=== PATIENT | male | born 1960 | race Caucasian/White ===

== ENCOUNTER 2020-12-03 14:43 | Inpatient (IN) | payer BC ==
[~2020-12-03] VITALS: Ht 175.3 cm; Wt 89.4 kg
[2020-12-03 16:14] LABS: BILIRUBIN,URINE NEGATIVE (NEG); CLARITY,URINE CLEAR; COLOR,URINE YELLOW; NITRITE,URINE NEGATIVE (NEG); PROTEIN,URINE 30 mg/dL (NEG-TRACE)
[2020-12-03] MEDS: IV NORMAL SALINE 1000ML BAG 1,000 ML IV SCH ×3 (16:19→17:13)
[2020-12-03 16:20] LABS: BASO # 0.1 x10^3/uL (0.0-0.2); BASO % 1 % (0-3); EOS % 0 % (0-3); HEMATOCRIT 46.9 % (39.0-53.0); HEMOGLOBIN 16.2 g/dL (13.0-17.5); LYMPH # 1.4 x10^3/uL (1.0-4.8); LYMPH % 7 % (24-48); MEAN CORPUSCULAR HEMOGLOBIN 30 pg (25-35); MEAN CORPUSCULAR HGB CONC 34 g/dL (31-37); MEAN CORPUSCULAR VOLUME 88 fL (79-100); MONO # 1.8 x10^3/uL (0.0-1.1); MONO % 9 % (0-9); NEUT # 16.1 x10^3/uL (1.8-7.7); NEUT % 83 % (31-73); PLATELET COUNT 216 x10^3/uL (140-400); RED BLOOD COUNT 5.34 x10^6/uL (4.30-5.70); RED CELL DISTRIBUTION WIDTH 12.8 % (11.5-14.5); WHITE BLOOD COUNT 19.4 x10^3/uL (4.0-11.0)
[2020-12-03 16:25] LABS: BACTERIA,URINE MANY /HPF (0-FEW)
[2020-12-03 16:26] LABS: RBC,URINE OCC /HPF (0-2)
[2020-12-03] MEDS ORDERED: ACETAMINOPHEN 500 MG TABLET PO ONE (16:30)
[2020-12-03 16:36] LABS: CALCIUM 8.6 mg/dL (8.5-10.1); CREATININE 1.1 mg/dL (0.7-1.3); GFR 68.5; POTASSIUM 3.7 mmol/L (3.5-5.1)
[2020-12-03 16:42] LABS: ALBUMIN 3.2 g/dL (3.4-5.0); ALBUMIN/GLOBULIN RATIO 0.8 (1.0-1.7); TOTAL BILIRUBIN 0.8 mg/dL (0.2-1.0); TOTAL PROTEIN 7.4 g/dL (6.4-8.2)
[2020-12-03 16:43] LABS: INFLUENZA A PATIENT NEGATIVE (NEGATIVE); INFLUENZA B PATIENT NEGATIVE (NEGATIVE)
--- NOTE | 2020-12-03 16:50 | RAD ---
EXAM: CHEST 1 VIEW History: Fever COMPARISON: None available. TECHNIQUE: Single portable radiograph of the chest FINDINGS: The cardiac silhouette is unremarkable. Mild patchy airspace opacities bibasilar lungs lik ruth atelectasis or infiltrates. The costophrenic sulci are clear and well demarcated. IMPRESSION: Mild patchy airspace opacities bibasilar lungs likely infiltrates. Follow-up to [facility] on. Electronically signed by: Miguel Gutierrez MD (12/03/2020 4:48 PM) [id number]
[2020-12-03 16:59] LABS: % BANDS 12 % (0-9); % BASOS 1 % (0-3); % LYMPHS 7 % (24-48); % MONOS 7 % (0-10); % SEGS 73 % (35-66); PLT ESTIMATE ADEQUATE (ADEQUATE)
[2020-12-03 17:00] LABS: POLYCHROMASIA SLIGHT
[2020-12-03 17:03] LABS: TOXIC GRANULATION SLIGHT
[2020-12-03] MEDS ORDERED: cefTRIAXone IV Push 1 GM VIAL. IVP ONE (17:15)
--- NOTE | 2020-12-03 18:08 | RAD ---
PQRS Compliance Statement: One or more of the following individualized dose reduction techniques were utilized for this examinat ion: 1. Automated exposure control 2. Adjustment of the mA and/or kV according to patient size 3. Use of iterative reconstruction technique CT ABDOMEN+PELVIS WO Clinical Indication: Reason: Bilateral flank pain. H/o kidney stones / Comparison: None. Technique: Helical CT imaging of the abdomen and pelvis is performed without IV or oral contrast. Findings: Evaluation of solid organs and bowel is limited without oral and IV contrast, decreasing sensitivity for detection of pathology. Minimal atelectasis or scarring in the posterior lower lobes. Cardiac size normal. The liver, gallbladder, spleen, pancreas, adrenal glands, and abdominal aorta are normal. There is no renal, ureteral, or bladder calculus. There is no hydronephrosis. The stomach is mostly decompressed. There is no dilated small bowel. There is no colon wall thickenin g. The appendix is normal. There is haziness of the central mesentery, nonspecific. There is no abdom inal adenopathy. There are subcentimeter iliac chain lymph nodes. Urinary bladder is normal. Prostate size upper limit s of normal. No pelvic free fluid. Small sclerotic focus of the intertrochanteric left femur is probably incidental and may be a bone is land. IMPRESSION: No acute abdominal or pelvic abnormality. No obstructive uropathy. Electronically signed by: Gatito Perry MD (12/03/2020 6:05 PM) [facility]
--- NOTE | 2020-12-03 21:06 | PHYS DOC ---
Past Medical History Past Medical History: UTI Past Surgical History: Other Additional Past Surgical Histo: URETEHERAL STRICTURE Smoking Status: Former Smoker Alcohol Use: Rarely General Adult EDM: Chief Complaint: BACK PAIN OR INJURY HPI: HPI: Patient is a 60 year old male with history of UTIs who presents to the ED today complaining of 7 out of 10 bilateral mid back pain, headache, chills, symptoms began 3 days ago. Patient describes the pain as throbbing and intermittent. Denies anything exacerbating or relieving the pain. Denies any cough, congestion, chest pain or shortness of breath. He states he got [employer] Covid vaccine. He states the last time he had similar symptoms he had infection in his urine. He states he is from [facility] and is here working for [employer] Review of Systems: Review of Systems: Constitutional: Reports chills HENT: Denies nasal congestion or sore throat. [] Respiratory: Denies cough or shortness of breath. [] Cardiovascular: Denies chest pain or edema. [] GI: Denies abdominal pain, nausea, vomiting, bloody stools or diarrhea. [] : Denies dysuria. [] Musculoskeletal: Reports bilateral mid back pain Integument: Denies rash. [] Neurologic: Reports headache, denies focal weakness or sensory changes. [] Endocrine: Denies polyuria or polydipsia. [] Lymphatic: Denies swollen glands. [] Psychiatric: Denies depression or anxiety. [] Heart Score: C/O Chest Pain: N/A Risk Factors: Risk Factors: DM, Current or recent (<one month) smoker, HTN, HLP, family history of CAD, obesity. Risk Scores: Score 0 - 3: 2.5% MACE over next 6 weeks - Discharge Home Score 4 - 6: 20.3% MACE over next 6 weeks - Admit for Clinical Observation Score 7 - 10: 72.7% MACE over next 6 weeks - Early Invasive Strategies Current Medications: Current Medications Medications (Trade) Dose Ordered Sig/Augustin Start Time Stop Time Status Last Admin Dose Admin Acetaminophen (Tylenol) 1,000 mg 1X ONCE 12/03/20 16:30 12/03/20 16:31 DC 12/03/20 16:19 1,000 MG Ceftriaxone Sodium (Rocephin) 1 gm 1X ONCE 12/03/20 17:15 12/03/20 17:16 DC 12/03/20 17:15 1 GM Sodium Chloride 1,000 ml @ 2,130 mls/hr Q29M 12/03/20 16:15 12/03/20 17:15 DC 12/03/20 16:19 2,130 MLS/HR Allergies: Allergies: Allergies Coded Allergies Type Severity Reaction Last Updated Verified No Known Drug Allergies 12/03/20 No Physical Exam: PE: Constitutional: Well developed, well nourished, no acute distress, non-toxic appearance. [] HENT: Normocephalic, atraumatic, bilateral external ears normal, oropharynx moist, no oral exudates, nose normal. [] Eyes: PERRLA, EOMI, conjunctiva normal, no discharge. [] Neck: Normal range of motion, no tenderness, supple, no stridor. [] Cardiovascular:Heart rate regular rhythm, no murmur [] Lungs & Thorax: Bilateral breath sounds clear to auscultation [] Abdomen: Bowel sounds normal, soft, no tenderness, no masses, no pulsatile ma sses. [] Skin: Warm, dry, no erythema, no rash. [] Back: No tenderness, no CVA tenderness. [] Extremities: No tenderness, no cyanosis, no clubbing, ROM intact, no edema. [] Neurologic: Alert and oriented X 3, normal motor function, normal sensory function, no focal deficits noted. [] Psychologic: Affect normal, judgement normal, mood normal. [] Current Patient Data: Labs: Laboratory Tests Test 12/03/20 15:54 12/03/20 16:05 12/03/20 16:11 Urine Collection Type Unknown Urine Color Yellow Urine Clarity Clear Urine pH 6.0 (<5.0-8.0) Urine Specific [place] >=1.030 (1.000-1.030) Urine Protein 30 mg/dL (NEG-TRACE) Urine Glucose (UA) >=1000 mg/dL (NEG) Urine Ketones (Stick) >=80 mg/dL (NEG) Urine Blood Negative (NEG) Urine Nitrite Negative (NEG) Urine Bilirubin Negative (NEG) Urine Urobilinogen Dipstick 1.0 mg/dL (0.2 mg/dL) Urine Leukocyte Esterase Small (NEG) Urine RBC Occ /HPF (0-2) Urine WBC 11-20 /HPF (0-4) Urine Squamous Epithelial Cells Few /LPF Urine Bacteria Many /HPF (0-FEW) Urine Mucus Marked /LPF White Blood Count 19.4 x10^3/uL (4.0-11.0) H Red Blood Count 5.34 x10^6/uL (4.30-5.70) Hemoglobin 16.2 g/dL (13.0-17.5) Hematocrit 46.9 % (39.0-53.0) Mean Corpuscular Volume 88 fL (79-100) Mean Corpuscular Hemoglobin 30 pg (25-35) Mean Corpuscular Hemoglobin Concent 34 g/dL (31-37) Red Cell Distribution Width 12.8 % (11.5-14.5) Platelet Count 216 x10^3/uL (140-400) Neutrophils (%) (Auto) 83 % (31-73) H Lymphocytes (%) (Auto) 7 % (24-48) L Monocytes (%) (Auto) 9 % (0-9) Eosinophils (%) (Auto) 0 % (0-3) Basophils (%) (Auto) 1 % (0-3) Neutrophils # (Auto) 16.1 x10^3/uL (1.8-7.7) H Lymphocytes # (Auto) 1.4 x10^3/uL (1.0-4.8) Monocytes # (Auto) 1.8 x10^3/uL (0.0-1.1) H Eosinophils # (Auto) 0.0 x10^3/uL (0.0-0.7) Basophils # (Auto) 0.1 x10^3/uL (0.0-0.2) Segmented Neutrophils % 73 % (35-66) H Band Neutrophils % 12 % (0-9) H Lymphocytes % 7 % (24-48) L Monocytes % 7 % (0-10) Basophils % 1 % (0-3) Toxic Granulation Slight Platelet Estimate Adequate (ADEQUATE) Polychromasia Slight Sodium Level 133 mmol/L (136-145) L Potassium Level 3.7 mmol/L (3.5-5.1) Chloride Level 98 mmol/L (98-107) Carbon Dioxide Level 25 mmol/L (21-32) Anion Gap 10 (6-14) Blood Urea Nitrogen 16 mg/dL (8-26) Creatinine 1.1 mg/dL (0.7-1.3) Estimated GFR (Cockcroft-Gault) 68.5 BUN/Creatinine Ratio 15 (6-20) Glucose Level 270 mg/dL (70-99) H Lactic Acid Level 1.1 mmol/L (0.4-2.0) Calcium Level 8.6 mg/dL (8.5-10.1) Total Bilirubin 0.8 mg/dL (0.2-1.0) Aspartate Amino Transferase (AST) 5 U/L (15-37) L Alanine Aminotransferase (ALT) 23 U/L (16-63) Alkaline Phosphatase 122 U/L (46-116) H Total Protein 7.4 g/dL (6.4-8.2) Albumin 3.2 g/dL (3.4-5.0) L Albumin/Globulin Ratio 0.8 (1.0-1.7) L Procalcitonin 0.37 ng/mL (0.00-0.10) H Influenza Type A Antigen Negative (NEGATIVE) Influenza Type B Antigen Negative (NEGATIVE) SARS-CoV-2 Antigen (Rapid) Negative (NEGATIVE) Laboratory Tests 12/03/20 16:05 Laboratory Tests 12/03/20 16:05 Vital Signs: Vital Signs Date Time Temp Pulse Resp B/P (MAP) Pulse Ox O2 Delivery O2 Flow Rate FiO2 12/03/20 19:26 88 23 114/65 (81) 96 Room Air 12/03/20 15:57 101.8 101.8 EKG: EKG: [] Radiology/Procedures: Radiology/Procedures: []PROCEDURE: CT ABDOMEN PELVIS WO CONTRAST PQRS Compliance Statement: One or more of the following individualized dose reduction techniques were utilized for this examination: 1. Automated exposure control 2. Adjustment of the mA and/or kV according to patient size 3. Use of iterative reconstruction technique CT ABDOMEN+PELVIS WO Clinical Indication: Reason: Bilateral flank pain. H/o kidney stones / Comparison: None. Technique: Helical CT imaging of the abdomen and pelvis is performed without IV or oral contrast. Findings: Evaluation of solid organs and bowel is limited without oral and IV contrast, decreasing sensitivity for detection of pathology. Minimal atelectasis or scarring in the posterior lower lobes. Cardiac size normal. The liver, gallbladder, spleen, pancreas, adrenal glands, and abdominal aorta are normal. There is no renal, ureteral, or bladder calculus. There is no hydronephrosis. The stomach is mostly decompressed. There is no dilated small bowel. There is no colon wall thickening. The appendix is normal. There is haziness of the central mesentery, nonspecific. There is no abdominal adenopathy. There are subcentimeter iliac chain lymph nodes. Urinary bladder is normal. Prostate size upper limits of normal. No pelvic free fluid. Small sclerotic focus of the intertrochanteric left femur is probably incidental and may be a bone island. IMPRESSION: No acute abdominal or pelvic abnormality. No obstructive uropathy. Electronically signed by: Gatito Perry MD (12/03/2020 6:05 PM) [facility] DICTATED and SIGNED BY: GATITO PERRY MD DATE: 12/03/[id number] 0 PROCEDURE: PORTABLE CHEST 1V EXAM: CHEST 1 VIEW History: Fever COMPARISON: None available. TECHNIQUE: Single portable radiograph of the chest FINDINGS: The cardiac silhouette is unremarkable. Mild patchy airspace opacities bibasilar lungs likely atelectasis or infiltrates. The costophrenic sulci are clear and well demarcated. IMPRESSION: Mild patchy airspace opacities bibasilar lungs likely infiltrates. Follow-up to resolution. Electronically signed by: Miguel Gutierrez MD (12/03/2020 4:48 PM) [id number] DICTATED and SIGNED BY: MIGUEL GUTIERREZ MD DATE: 12/03/20 [id number] Course & Med Decision Making: Course & Med Decision Making Pertinent Labs and Imaging studies reviewed. (See chart for details) This is a 60-year-old male patient presented to the ED today with headache chills and mid back pain, symptoms began 3 days ago. Vitals on arrival to the ED temperature one 1.8, heart rate 119, respiration 18 on room air, blood pressure 157/80, O2 sats 98%. CBC with a WBC of 19.4, left shift with bandemia. CMP with glucose of 270, lactic 1.1, procalcitonin 0.37. UA positive for UTI. Negative rapid influenza A and B, negative rapid Covid test. Patient was given Tylenol on arrival to the ED and started on IV fluids per sepsis protocol. He was also given Rocephin IV. Spoke to Dr. Hitchcock who accepted patient for admission Dragon Disclaimer: Keri Disclaimer: This electronic medical record was generated, in whole or in part, using a voice recognition dictation system. Date and Time of Reassessment Date: Dec 03, 2020 Time: 15:45 Fluid Challenge Is the fluid challenge complet: No IBW Target Volume Used: No BMI > 30: No Vital Signs Vital Signs: Vital Signs Date Time Temp Pulse Resp B/P (MAP) Pulse Ox O2 Delivery O2 Flow Rate FiO2 12/03/20 19:26 88 23 114/65 (81) 96 Room Air 12/03/20 15:57 101.8 101.8 Temperature Source: Oral Respirations Respiratory Effort: Normal Respiratory Pattern: Normal Cardiovascular Pulse Rhythm: Regular Heart: Nml rate, reg. rhythm Lung Sounds Breath Sounds: Clear Capillary Refil Capillary Refill: Rt Hand > 3 seconds Peripheral Pulse Pulse Location: Monitor Pulse Strength: Normal (2+) Pulse Assessment Method: Monitor Integumentary Skin: Warm Skin Moisture: Moist Skin Turgor: Normal Skin Color: warm Fingernail Color: WNL Departure Departure Impression: Primary Impression: Fever Qualified Codes: R50.9 - Fever, unspecified Additional Impressions: Urinary tract infection Qualified Codes: N39.0 - Urinary tract infection, site not specified Sepsis Qualified Codes: A41.9 - Sepsis, unspecified organism Headache Qualified Codes: R51.9 - Headache, unspecified Person under investigation for COVID-19 Disposition: 09 ADMITTED INPATIENT Condition: STABLE Referrals: NO PCP (PCP) MICHAEL SAEED APRN Dec 03, 2020 21:06
[2020-12-03] MEDS ORDERED: MORPHINE SULFATE 2 MG/ML INJ. IVP PRN (21:15)
[2020-12-03] MEDS ORDERED: ONDANSETRON PF 4 MG/2 ML VIAL. IVP PRN (21:15)
[2020-12-03] MEDS ORDERED: IV NORMAL SALINE 1000ML BAG 1,000 ML IV ONE (21:15)
[2020-12-03] MEDS ORDERED: ACETAMINOPHEN 325 MG TABLET. PO PRN (21:15)
[2020-12-04 05:32] LABS: ALBUMIN 2.5 g/dL (3.4-5.0); ALBUMIN/GLOBULIN RATIO 0.7 (1.0-1.7); CALCIUM 7.6 mg/dL (8.5-10.1); CREATININE 0.9 mg/dL (0.7-1.3); GFR 86.4; POTASSIUM 3.6 mmol/L (3.5-5.1); TOTAL BILIRUBIN 0.7 mg/dL (0.2-1.0)
[2020-12-04 05:37] LABS: BASO # 0.1 x10^3/uL (0.0-0.2); BASO % 0 % (0-3); EOS # 0.1 x10^3/uL (0.0-0.7); EOS % 1 % (0-3); HEMATOCRIT 41.1 % (39.0-53.0); HEMOGLOBIN 14.1 g/dL (13.0-17.5); LYMPH # 2.1 x10^3/uL (1.0-4.8); LYMPH % 15 % (24-48); MEAN CORPUSCULAR HEMOGLOBIN 31 pg (25-35); MEAN CORPUSCULAR HGB CONC 34 g/dL (31-37); MEAN CORPUSCULAR VOLUME 89 fL (79-100); MONO # 1.4 x10^3/uL (0.0-1.1); MONO % 10 % (0-9); NEUT # 10.5 x10^3/uL (1.8-7.7); NEUT % 74 % (31-73); PLATELET COUNT 201 x10^3/uL (140-400); RED BLOOD COUNT 4.63 x10^6/uL (4.30-5.70); RED CELL DISTRIBUTION WIDTH 12.8 % (11.5-14.5); WHITE BLOOD COUNT 14.2 x10^3/uL (4.0-11.0)
[2020-12-04] MEDS ORDERED: DEXTROSE 50% 25 GM / 50ML DISP.SYRIN. IV PRN (07:00)
--- NOTE | 2020-12-04 07:04 | PDOC1 ---
History and Physical Date of Admission Date of Admission DATE: 12/04/20 TIME: 07:04 Identification/Chief Complaint Chief Complaint Back pain, fever Current Problem List Problem List Problems Medical Problems: (1) Fever Status: Acute (2) Headache Status: Acute (3) Person under investigation for COVID-19 Status: Acute (4) Sepsis Status: Acute (5) Urinary tract infection Status: Acute Current Medications Current Medications Current Medications Acetaminophen (Tylenol) 1,000 mg 1X ONCE PO Last administered on 12/03/20at 16:19; Start 12/03/20 at 16:30; Stop 12/03/20 at 16:31; Status DC Sodium Chloride 1,000 ml @ 2,130 mls/hr Q29M IV Last administered on 12/03/20at 16:19; Start 12/03/20 at 16:15; Stop 12/03/20 at 17:15; Status DC Ceftriaxone Sodium (Rocephin) 1 gm 1X ONCE IVP Last administered on 12/03/20at 17:15; Start 12/03/20 at 17:15; Stop 12/03/20 at 17:16; Status DC Ondansetron HCl (Zofran) 4 mg PRN Q8HRS PRN IVP NAUSEA/VOMITING 1ST CHOICE; Start 12/03/20 at 21:15; Stop 12/04/20 at 21:14 Morphine Sulfate (Morphine Sulfate) 2 mg PRN Q2HR PRN IVP SEVERE PAIN 7-10; Start 12/03/20 at 21:15; Stop 12/04/20 at 21:14 Acetaminophen (Tylenol) 650 mg PRN Q4HRS PRN PO FEVER > 100.3'F; Start 12/03/20 at 21:15; Stop 12/04/20 at 21:14 Sodium Chloride 1,000 ml @ 125 mls/hr 1X ONCE IV Last administered on 12/03/20at 23:32; Start 12/03/20 at 21:15; Stop 12/04/20 at 05:14; Status DC Allergies Allergies: Coded Allergies: No Known Drug Allergies (Unverified , 12/03/20) Vitals Vitals Vital Signs Date Time Temp Pulse Resp B/P (MAP) Pulse Ox O2 Delivery O2 Flow Rate FiO2 12/04/20 03:34 86 18 116/67 (83) 96 Room Air 12/03/20 15:57 101.8 101.8 Labs Labs Laboratory Tests Test 12/03/20 15:54 12/03/20 16:05 12/03/20 16:11 12/04/20 04:45 Urine Collection Type Unknown Urine Color Yellow Urine Clarity Clear Urine pH 6.0 (<5.0-8.0) Urine Specific [place] >=1.030 (1.000-1.030) Urine Protein 30 mg/dL (NEG-TRACE) Urine Glucose (UA) >=1000 mg/dL (NEG) Urine Ketones (Stick) >=80 mg/dL (NEG) Urine Blood Negative (NEG) Urine Nitrite Negative (NEG) Urine Bilirubin Negative (NEG) Urine Urobilinogen Dipstick 1.0 mg/dL (0.2 mg/dL) Urine Leukocyte Esterase Small (NEG) Urine RBC Occ /HPF (0-2) Urine WBC 11-20 /HPF (0-4) Urine Squamous Epithelial Cells Few /LPF Urine Bacteria Many /HPF (0-FEW) Urine Mucus Marked /LPF White Blood Count 19.4 x10^3/uL (4.0-11.0) 14.2 x10^3/uL (4.0-11.0) Red Blood Count 5.34 x10^6/uL (4.30-5.70) 4.63 x10^6/uL (4.30-5.70) Hemoglobin 16.2 g/dL (13.0-17.5) 14.1 g/dL (13.0-17.5) Hematocrit 46.9 % (39.0-53.0) 41.1 % (39.0-53.0) Mean Corpuscular Volume 88 fL (79-100) 89 fL (79-100) Mean Corpuscular Hemoglobin 30 pg (25-35) 31 pg (25-35) Mean Corpuscular Hemoglobin Concent 34 g/dL (31-37) 34 g/dL (31-37) Red Cell Distribution Width 12.8 % (11.5-14.5) 12.8 % (11.5-14.5) Platelet Count 216 x10^3/uL (140-400) 201 x10^3/uL (140-400) Neutrophils (%) (Auto) 83 % (31-73) 74 % (31-73) Lymphocytes (%) (Auto) 7 % (24-48) 15 % (24-48) Monocytes (%) (Auto) 9 % (0-9) 10 % (0-9) Eosinophils (%) (Auto) 0 % (0-3) 1 % (0-3) Basophils (%) (Auto) 1 % (0-3) 0 % (0-3) Neutrophils # (Auto) 16.1 x10^3/uL (1.8-7.7) 10.5 x10^3/uL (1.8-7.7) Lymphocytes # (Auto) 1.4 x10^3/uL (1.0-4.8) 2.1 x10^3/uL (1.0-4.8) Monocytes # (Auto) 1.8 x10^3/uL (0.0-1.1) 1.4 x10^3/uL (0.0-1.1) Eosinophils # (Auto) 0.0 x10^3/uL (0.0-0.7) 0.1 x10^3/uL (0.0-0.7) Basophils # (Auto) 0.1 x10^3/uL (0.0-0.2) 0.1 x10^3/uL (0.0-0.2) Segmented Neutrophils % 73 % (35-66) Band Neutrophils % 12 % (0-9) Lymphocytes % 7 % (24-48) Monocytes % 7 % (0-10) Basophils % 1 % (0-3) Toxic Granulation Slight Platelet Estimate Adequate (ADEQUATE) Polychromasia Slight Sodium Level 133 mmol/L (136-145) 137 mmol/L (136-145) Potassium Level 3.7 mmol/L (3.5-5.1) 3.6 mmol/L (3.5-5.1) Chloride Level 98 mmol/L (98-107) 103 mmol/L (98-107) Carbon Dioxide Level 25 mmol/L (21-32) 25 mmol/L (21-32) Anion Gap 10 (6-14) 9 (6-14) Blood Urea Nitrogen 16 mg/dL (8-26) 18 mg/dL (8-26) Creatinine 1.1 mg/dL (0.7-1.3) 0.9 mg/dL (0.7-1.3) Estimated GFR (Cockcroft-Gault) 68.5 86.4 BUN/Creatinine Ratio 15 (6-20) 20 (6-20) Glucose Level 270 mg/dL (70-99) 211 mg/dL (70-99) Lactic Acid Level 1.1 mmol/L (0.4-2.0) Calcium Level 8.6 mg/dL (8.5-10.1) 7.6 mg/dL (8.5-10.1) Total Bilirubin 0.8 mg/dL (0.2-1.0) 0.7 mg/dL (0.2-1.0) Aspartate Amino Transf (AST/SGOT) 5 U/L (15-37) 9 U/L (15-37) Alanine Aminotransferase (ALT/SGPT) 23 U/L (16-63) 18 U/L (16-63) Alkaline Phosphatase 122 U/L (46-116) 98 U/L (46-116) Total Protein 7.4 g/dL (6.4-8.2) 6.0 g/dL (6.4-8.2) Albumin 3.2 g/dL (3.4-5.0) 2.5 g/dL (3.4-5.0) Albumin/Globulin Ratio 0.8 (1.0-1.7) 0.7 (1.0-1.7) Procalcitonin 0.37 ng/mL (0.00-0.10) Influenza Type A Antigen Negative (NEGATIVE) Influenza Type B Antigen Negative (NEGATIVE) SARS-CoV-2 Antigen (Rapid) Negative (NEGATIVE) Laboratory Tests Test 12/03/20 15:54 12/03/20 16:05 12/03/20 16:11 12/04/20 04:45 Urine Collection Type Unknown Urine Color Yellow Urine Clarity Clear Urine pH 6.0 (<5.0-8.0) Urine Specific [place] >=1.030 (1.000-1.030) Urine Protein 30 mg/dL (NEG-TRACE) Urine Glucose (UA) >=1000 mg/dL (NEG) Urine Ketones (Stick) >=80 mg/dL (NEG) Urine Blood Negative (NEG) Urine Nitrite Negative (NEG) Urine Bilirubin Negative (NEG) Urine Urobilinogen Dipstick 1.0 mg/dL (0.2 mg/dL) Urine Leukocyte Esterase Small (NEG) Urine RBC Occ /HPF (0-2) Urine WBC 11-20 /HPF (0-4) Urine Squamous Epithelial Cells Few /LPF Urine Bacteria Many /HPF (0-FEW) Urine Mucus Marked /LPF White Blood Count 19.4 x10^3/uL (4.0-11.0) 14.2 x10^3/uL (4.0-11.0) Red Blood Count 5.34 x10^6/uL (4.30-5.70) 4.63 x10^6/uL (4.30-5.70) Hemoglobin 16.2 g/dL (13.0-17.5) 14.1 g/dL (13.0-17.5) Hematocrit 46.9 % (39.0-53.0) 41.1 % (39.0-53.0) Mean Corpuscular Volume 88 fL (79-100) 89 fL (79-100) Mean Corpuscular Hemoglobin 30 pg (25-35) 31 pg (25-35) Mean Corpuscular Hemoglobin Concent 34 g/dL (31-37) 34 g/dL (31-37) Red Cell Distribution Width 12.8 % (11.5-14.5) 12.8 % (11.5-14.5) Platelet Count 216 x10^3/uL (140-400) 201 x10^3/uL (140-400) Neutrophils (%) (Auto) 83 % (31-73) 74 % (31-73) Lymphocytes (%) (Auto) 7 % (24-48) 15 % (24-48) Monocytes (%) (Auto) 9 % (0-9) 10 % (0-9) Eosinophils (%) (Auto) 0 % (0-3) 1 % (0-3) Basophils (%) (Auto) 1 % (0-3) 0 % (0-3) Neutrophils # (Auto) 16.1 x10^3/uL (1.8-7.7) 10.5 x10^3/uL (1.8-7.7) Lymphocytes # (Auto) 1.4 x10^3/uL (1.0-4.8) 2.1 x10^3/uL (1.0-4.8) Monocytes # (Auto) 1.8 x10^3/uL (0.0-1.1) 1.4 x10^3/uL (0.0-1.1) Eosinophils # (Auto) 0.0 x10^3/uL (0.0-0.7) 0.1 x10^3/uL (0.0-0.7) Basophils # (Auto) 0.1 x10^3/uL (0.0-0.2) 0.1 x10^3/uL (0.0-0.2) Segmented Neutrophils % 73 % (35-66) Band Neutrophils % 12 % (0-9) Lymphocytes % 7 % (24-48) Monocytes % 7 % (0-10) Basophils % 1 % (0-3) Toxic Granulation Slight Platelet Estimate Adequate (ADEQUATE) Polychromasia Slight Sodium Level 133 mmol/L (136-145) 137 mmol/L (136-145) Potassium Level 3.7 mmol/L (3.5-5.1) 3.6 mmol/L (3.5-5.1) Chloride Level 98 mmol/L (98-107) 103 mmol/L (98-107) Carbon Dioxide Level 25 mmol/L (21-32) 25 mmol/L (21-32) Anion Gap 10 (6-14) 9 (6-14) Blood Urea Nitrogen 16 mg/dL (8-26) 18 mg/dL (8-26) Creatinine 1.1 mg/dL (0.7-1.3) 0.9 mg/dL (0.7-1.3) Estimated GFR (Cockcroft-Gault) 68.5 86.4 BUN/Creatinine Ratio 15 (6-20) 20 (6-20) Glucose Level 270 mg/dL (70-99) 211 mg/dL (70-99) Lactic Acid Level 1.1 mmol/L (0.4-2.0) Calcium Level 8.6 mg/dL (8.5-10.1) 7.6 mg/dL (8.5-10.1) Total Bilirubin 0.8 mg/dL (0.2-1.0) 0.7 mg/dL (0.2-1.0) Aspartate Amino Transf (AST/SGOT) 5 U/L (15-37) 9 U/L (15-37) Alanine Aminotransferase (ALT/SGPT) 23 U/L (16-63) 18 U/L (16-63) Alkaline Phosphatase 122 U/L (46-116) 98 U/L (46-116) Total Protein 7.4 g/dL (6.4-8.2) 6.0 g/dL (6.4-8.2) Albumin 3.2 g/dL (3.4-5.0) 2.5 g/dL (3.4-5.0) Albumin/Globulin Ratio 0.8 (1.0-1.7) 0.7 (1.0-1.7) Procalcitonin 0.37 ng/mL (0.00-0.10) Influenza Type A Antigen Negative (NEGATIVE) Influenza Type B Antigen Negative (NEGATIVE) SARS-CoV-2 Antigen (Rapid) Negative (NEGATIVE) Justifications for Admission Other Justification MOE MONTOYA MD Dec 04, 2020 07:04
[2020-12-04] MEDS ORDERED: ACETAMINOPHEN 325 MG TABLET. PO PRN (07:15)
[2020-12-04] MEDS ORDERED: ONDANSETRON PF 4 MG/2 ML VIAL. IVP PRN (07:15)
[2020-12-04] MEDS ORDERED: AZITHROMYCIN 250 MG TABLET. PO ONE (07:30)
--- NOTE | 2020-12-04 07:40 | PDOC1 ---
History and Physical Date of Admission Date of Admission DATE: 12/04/20 TIME: :21 Identification/Chief Complaint Chief Complaint Back pain Source Source: Patient History of Present Illness History of Present Illness Patient 60-year-old male with past medical history UTIs, kidney stones, presents to the ED with complaints of bilateral flank pain for the past 3 days. He reports associated urinary frequency, urgency, headache, and chills. Denies fever, dysuria, nausea, or vomiting. Labs on admission showed WBC 19.4, CBG 270. Urinalysis with small leukocyte esterase, urine nitrite negative, urine WBC 1120, with many urine bacteria. Chest x-ray showed mild patchy airspace opacities bibasilar lungs likely infiltrates. Follow-up to resolution CT abdomen/pelvis showed no renal, ureteral, or bladder calculus; here is no hydronephrosis. He has been vaccinated against COVID-19. Will admit patient for further medical management. Past Medical History Past Medical History UTIs, kidney stone Past Surgical History Past Surgical History Urethral stricture Family History Family History Reviewed with patient but denies significant family history Social History Smoke: Quit ALCOHOL: occassional Drugs: None Current Problem List Problem List Problems Medical Problems: (1) Fever Status: Acute (2) Headache Status: Acute (3) Person under investigation for COVID-19 Status: Acute (4) Sepsis Status: Acute (5) Urinary tract infection Status: Acute Current Medications Current Medications Current Medications Acetaminophen (Tylenol) 1,000 mg 1X ONCE PO Last administered on 12/03/20at 16:19; Start 12/03/20 at 16:30; Stop 12/03/20 at 16:31; Status DC Sodium Chloride 1,000 ml @ 2,130 mls/hr Q29M IV Last administered on 12/03/20at 16:19; Start 12/03/20 at 16:15; Stop 12/03/20 at 17:15; Status DC Ceftriaxone Sodium (Rocephin) 1 gm 1X ONCE IVP Last administered on 12/03/20at 17:15; Start 12/03/20 at 17:15; Stop 12/03/20 at 17:16; Status DC Ondansetron HCl (Zofran) 4 mg PRN Q8HRS PRN IVP NAUSEA/VOMITING 1ST CHOICE; Start 12/03/20 at 21:15; Stop 12/04/20 at 07:03; Status DC Morphine Sulfate (Morphine Sulfate) 2 mg PRN Q2HR PRN IVP SEVERE PAIN 7-10; Start 12/03/20 at 21:15; Stop 12/04/20 at 21:14 Acetaminophen (Tylenol) 650 mg PRN Q4HRS PRN PO FEVER > 100.3'F; Start 12/03/20 at 21:15; Stop 12/04/20 at 07:03; Status DC Sodium Chloride 1,000 ml @ 125 mls/hr 1X ONCE IV Last administered on 12/03/20at 23:32; Start 12/03/20 at 21:15; Stop 12/04/20 at 05:14; Status DC Insulin Glargine (Lantus Syringe) 8 unit QHS SQ ; Start 12/04/20 at 21:00 Insulin Human Lispro (HumaLOG) 0-9 UNITS TIDWMEALS SQ ; Start 12/04/20 at 08:00 Dextrose (Dextrose 50%-Water Syringe) 12.5 gm PRN Q15MIN PRN IV SEE COMMENTS; Start 12/04/20 at 07:00 Ondansetron HCl (Zofran) 4 mg PRN Q4HRS PRN IVP NAUSEA/VOMITING 1ST CHOICE; Start 12/04/20 at 07:15 Acetaminophen (Tylenol) 650 mg PRN Q6HRS PRN PO FEVER > 100.3'F; Start 12/04/20 at 07:15 Allergies Allergies: Coded Allergies: No Known Drug Allergies (Unverified , 12/03/20) ROS Review of System GENERAL: Headache, chills. No history of weight change, weakness or fevers. SKIN: No bruising, hair changes or rashes. EYES: No blurred, double or loss of vision. NOSE AND THROAT: No history of nosebleeds, hoarseness or sore throat. HEART: Denies chest pain, denies palpitations. LUNGS: Denies cough, hemoptysis, wheezing or shortness of breath. GASTROINTESTINAL: Denies nausea, vomiting, abdominal pain. GENITOURINARY: Bilateral flank pain. Urinary urgency, frequency. Denies dysuria, hematuria. NEUROLOGIC: Denies history of numbness, tingling, tremor or weakness. PSYCHIATRIC: Denies anxiety, denies depression. ENDOCRINE: No history of heat or cold intolerance, polyuria or polydipsia. EXTREMITIES: Denies muscle weakness, joint pain, pain on walking or stiffness. Physical Exam Physical Exam General: Alert, Oriented X3, Cooperative, No acute distress HEENT: PERRLA, EOMI Lungs: Clear to auscultation, Normal air movement Heart: RRR, no murmurs Cardiovascular: S1, S2 Abdomen: Normal bowel sounds, Soft, No tenderness Extremities: No clubbing, No cyanosis Skin: No rashes, No significant lesion Neuro: Normal speech, Normal tone, Sensation intact Psych/Mental Status: Mental status NL, Mood NL Vitals Vitals Vital Signs Date Time Temp Pulse Resp B/P (MAP) Pulse Ox O2 Delivery O2 Flow Rate FiO2 12/04/20 03:34 86 18 116/67 (83) 96 Room Air 12/03/20 15:57 101.8 101.8 Labs Labs Laboratory Tests Test 12/03/20 15:54 12/03/20 16:05 12/03/20 16:11 12/04/20 04:45 Urine Collection Type Unknown Urine Color Yellow Urine Clarity Clear Urine pH 6.0 (<5.0-8.0) Urine Specific [place] >=1.030 (1.000-1.030) Urine Protein 30 mg/dL (NEG-TRACE) Urine Glucose (UA) >=1000 mg/dL (NEG) Urine Ketones (Stick) >=80 mg/dL (NEG) Urine Blood Negative (NEG) Urine Nitrite Negative (NEG) Urine Bilirubin Negative (NEG) Urine Urobilinogen Dipstick 1.0 mg/dL (0.2 mg/dL) Urine Leukocyte Esterase Small (NEG) Urine RBC Occ /HPF (0-2) Urine WBC 11-20 /HPF (0-4) Urine Squamous Epithelial Cells Few /LPF Urine Bacteria Many /HPF (0-FEW) Urine Mucus Marked /LPF White Blood Count 19.4 x10^3/uL (4.0-11.0) 14.2 x10^3/uL (4.0-11.0) Red Blood Count 5.34 x10^6/uL (4.30-5.70) 4.63 x10^6/uL (4.30-5.70) Hemoglobin 16.2 g/dL (13.0-17.5) 14.1 g/dL (13.0-17.5) Hematocrit 46.9 % (39.0-53.0) 41.1 % (39.0-53.0) Mean Corpuscular Volume 88 fL (79-100) 89 fL (79-100) Mean Corpuscular Hemoglobin 30 pg (25-35) 31 pg (25-35) Mean Corpuscular Hemoglobin Concent 34 g/dL (31-37) 34 g/dL (31-37) Red Cell Distribution Width 12.8 % (11.5-14.5) 12.8 % (11.5-14.5) Platelet Count 216 x10^3/uL (140-400) 201 x10^3/uL (140-400) Neutrophils (%) (Auto) 83 % (31-73) 74 % (31-73) Lymphocytes (%) (Auto) 7 % (24-48) 15 % (24-48) Monocytes (%) (Auto) 9 % (0-9) 10 % (0-9) Eosinophils (%) (Auto) 0 % (0-3) 1 % (0-3) Basophils (%) (Auto) 1 % (0-3) 0 % (0-3) Neutrophils # (Auto) 16.1 x10^3/uL (1.8-7.7) 10.5 x10^3/uL (1.8-7.7) Lymphocytes # (Auto) 1.4 x10^3/uL (1.0-4.8) 2.1 x10^3/uL (1.0-4.8) Monocytes # (Auto) 1.8 x10^3/uL (0.0-1.1) 1.4 x10^3/uL (0.0-1.1) Eosinophils # (Auto) 0.0 x10^3/uL (0.0-0.7) 0.1 x10^3/uL (0.0-0.7) Basophils # (Auto) 0.1 x10^3/uL (0.0-0.2) 0.1 x10^3/uL (0.0-0.2) Segmented Neutrophils % 73 % (35-66) Band Neutrophils % 12 % (0-9) Lymphocytes % 7 % (24-48) Monocytes % 7 % (0-10) Basophils % 1 % (0-3) Toxic Granulation Slight Platelet Estimate Adequate (ADEQUATE) Polychromasia Slight Sodium Level 133 mmol/L (136-145) 137 mmol/L (136-145) Potassium Level 3.7 mmol/L (3.5-5.1) 3.6 mmol/L (3.5-5.1) Chloride Level 98 mmol/L (98-107) 103 mmol/L (98-107) Carbon Dioxide Level 25 mmol/L (21-32) 25 mmol/L (21-32) Anion Gap 10 (6-14) 9 (6-14) Blood Urea Nitrogen 16 mg/dL (8-26) 18 mg/dL (8-26) Creatinine 1.1 mg/dL (0.7-1.3) 0.9 mg/dL (0.7-1.3) Estimated GFR (Cockcroft-Gault) 68.5 86.4 BUN/Creatinine Ratio 15 (6-20) 20 (6-20) Glucose Level 270 mg/dL (70-99) 211 mg/dL (70-99) Lactic Acid Level 1.1 mmol/L (0.4-2.0) Calcium Level 8.6 mg/dL (8.5-10.1) 7.6 mg/dL (8.5-10.1) Total Bilirubin 0.8 mg/dL (0.2-1.0) 0.7 mg/dL (0.2-1.0) Aspartate Amino Transf (AST/SGOT) 5 U/L (15-37) 9 U/L (15-37) Alanine Aminotransferase (ALT/SGPT) 23 U/L (16-63) 18 U/L (16-63) Alkaline Phosphatase 122 U/L (46-116) 98 U/L (46-116) Total Protein 7.4 g/dL (6.4-8.2) 6.0 g/dL (6.4-8.2) Albumin 3.2 g/dL (3.4-5.0) 2.5 g/dL (3.4-5.0) Albumin/Globulin Ratio 0.8 (1.0-1.7) 0.7 (1.0-1.7) Procalcitonin 0.37 ng/mL (0.00-0.10) Influenza Type A Antigen Negative (NEGATIVE) Influenza Type B Antigen Negative (NEGATIVE) SARS-CoV-2 Antigen (Rapid) Negative (NEGATIVE) Laboratory Tests Test 12/03/20 15:54 12/03/20 16:05 12/03/20 16:11 12/04/20 04:45 Urine Collection Type Unknown Urine Color Yellow Urine Clarity Clear Urine pH 6.0 (<5.0-8.0) Urine Specific [place] >=1.030 (1.000-1.030) Urine Protein 30 mg/dL (NEG-TRACE) Urine Glucose (UA) >=1000 mg/dL (NEG) Urine Ketones (Stick) >=80 mg/dL (NEG) Urine Blood Negative (NEG) Urine Nitrite Negative (NEG) Urine Bilirubin Negative (NEG) Urine Urobilinogen Dipstick 1.0 mg/dL (0.2 mg/dL) Urine Leukocyte Esterase Small (NEG) Urine RBC Occ /HPF (0-2) Urine WBC 11-20 /HPF (0-4) Urine Squamous Epithelial Cells Few /LPF Urine Bacteria Many /HPF (0-FEW) Urine Mucus Marked /LPF White Blood Count 19.4 x10^3/uL (4.0-11.0) 14.2 x10^3/uL (4.0-11.0) Red Blood Count 5.34 x10^6/uL (4.30-5.70) 4.63 x10^6/uL (4.30-5.70) Hemoglobin 16.2 g/dL (13.0-17.5) 14.1 g/dL (13.0-17.5) Hematocrit 46.9 % (39.0-53.0) 41.1 % (39.0-53.0) Mean Corpuscular Volume 88 fL (79-100) 89 fL (79-100) Mean Corpuscular Hemoglobin 30 pg (25-35) 31 pg (25-35) Mean Corpuscular Hemoglobin Concent 34 g/dL (31-37) 34 g/dL (31-37) Red Cell Distribution Width 12.8 % (11.5-14.5) 12.8 % (11.5-14.5) Platelet Count 216 x10^3/uL (140-400) 201 x10^3/uL (140-400) Neutrophils (%) (Auto) 83 % (31-73) 74 % (31-73) Lymphocytes (%) (Auto) 7 % (24-48) 15 % (24-48) Monocytes (%) (Auto) 9 % (0-9) 10 % (0-9) Eosinophils (%) (Auto) 0 % (0-3) 1 % (0-3) Basophils (%) (Auto) 1 % (0-3) 0 % (0-3) Neutrophils # (Auto) 16.1 x10^3/uL (1.8-7.7) 10.5 x10^3/uL (1.8-7.7) Lymphocytes # (Auto) 1.4 x10^3/uL (1.0-4.8) 2.1 x10^3/uL (1.0-4.8) Monocytes # (Auto) 1.8 x10^3/uL (0.0-1.1) 1.4 x10^3/uL (0.0-1.1) Eosinophils # (Auto) 0.0 x10^3/uL (0.0-0.7) 0.1 x10^3/uL (0.0-0.7) Basophils # (Auto) 0.1 x10^3/uL (0.0-0.2) 0.1 x10^3/uL (0.0-0.2) Segmented Neutrophils % 73 % (35-66) Band Neutrophils % 12 % (0-9) Lymphocytes % 7 % (24-48) Monocytes % 7 % (0-10) Basophils % 1 % (0-3) Toxic Granulation Slight Platelet Estimate Adequate (ADEQUATE) Polychromasia Slight Sodium Level 133 mmol/L (136-145) 137 mmol/L (136-145) Potassium Level 3.7 mmol/L (3.5-5.1) 3.6 mmol/L (3.5-5.1) Chloride Level 98 mmol/L (98-107) 103 mmol/L (98-107) Carbon Dioxide Level 25 mmol/L (21-32) 25 mmol/L (21-32) Anion Gap 10 (6-14) 9 (6-14) Blood Urea Nitrogen 16 mg/dL (8-26) 18 mg/dL (8-26) Creatinine 1.1 mg/dL (0.7-1.3) 0.9 mg/dL (0.7-1.3) Estimated GFR (Cockcroft-Gault) 68.5 86.4 BUN/Creatinine Ratio 15 (6-20) 20 (6-20) Glucose Level 270 mg/dL (70-99) 211 mg/dL (70-99) Lactic Acid Level 1.1 mmol/L (0.4-2.0) Calcium Level 8.6 mg/dL (8.5-10.1) 7.6 mg/dL (8.5-10.1) Total Bilirubin 0.8 mg/dL (0.2-1.0) 0.7 mg/dL (0.2-1.0) Aspartate Amino Transf (AST/SGOT) 5 U/L (15-37) 9 U/L (15-37) Alanine Aminotransferase (ALT/SGPT) 23 U/L (16-63) 18 U/L (16-63) Alkaline Phosphatase 122 U/L (46-116) 98 U/L (46-116) Total Protein 7.4 g/dL (6.4-8.2) 6.0 g/dL (6.4-8.2) Albumin 3.2 g/dL (3.4-5.0) 2.5 g/dL (3.4-5.0) Albumin/Globulin Ratio 0.8 (1.0-1.7) 0.7 (1.0-1.7) Procalcitonin 0.37 ng/mL (0.00-0.10) Influenza Type A Antigen Negative (NEGATIVE) Influenza Type B Antigen Negative (NEGATIVE) SARS-CoV-2 Antigen (Rapid) Negative (NEGATIVE) Images Images PATIENT: JACOB DAMIAN ACCOUNT: [id number] : 1960 LOCATION: ER AGE: 60 SEX: M EXAM STATUS: PRE ER ORD. PHYSICIAN: MICHAEL SAEED APRN REASON: Bilateral flank pain. H/o kidney stones PROCEDURE: CT ABDOMEN PELVIS WO CONTRAST PQRS Compliance Statement: One or more of the following individualized dose reduction techniques were utilized for this examination: 1. Automated exposure control 2. Adjustment of the mA and/or kV according to patient size 3. Use of iterative reconstruction technique CT ABDOMEN+PELVIS WO Clinical Indication: Reason: Bilateral flank pain. H/o kidney stones / Comparison: None. Technique: Helical CT imaging of the abdomen and pelvis is performed without IV or oral contrast. Findings: Evaluation of solid organs and bowel is limited without oral and IV contrast, decreasing sensitivity for detection of pathology. Minimal atelectasis or scarring in the posterior lower lobes. Cardiac size normal. The liver, gallbladder, spleen, pancreas, adrenal glands, and abdominal aorta are normal. There is no renal, ureteral, or bladder calculus. There is no hydronephrosis. The stomach is mostly decompressed. There is no dilated small bowel. There is no colon wall thickening. The appendix is normal. There is haziness of the central mesentery, nonspecific. There is no abdominal adenopathy. There are subcentimeter iliac chain lymph nodes. Urinary bladder is normal. Prostate size upper limits of normal. No pelvic free fluid. Small sclerotic focus of the intertrochanteric left femur is probably incidental and may be a bone island. IMPRESSION: No acute abdominal or pelvic abnormality. No obstructive uropathy. PATIENT: JACOB DAMIAN ACCOUNT: [id number] : 1960 LOCATION: ER AGE: 60 SEX: M EXAM STATUS: PRE ER ORD. PHYSICIAN: MICHAEL SAEED APRN REASON: fever PROCEDURE: PORTABLE CHEST 1V EXAM: CHEST 1 VIEW History: Fever COMPARISON: None available. TECHNIQUE: Single portable radiograph of the chest FINDINGS: The cardiac silhouette is unremarkable. Mild patchy airspace opacities bibasilar lungs likely atelectasis or infiltrates. The costophrenic sulci are clear and well demarcated. IMPRESSION: Mild patchy airspace opacities bibasilar lungs likely infiltrates. Follow-up to resolution. VTE Prophylaxis Ordered VTE Prophylaxis Devices: No VTE Pharmacological Prophylaxi: Yes Assessment/Plan Assessment/Plan Sepsis Acute cystitis Bibasilar lungs infiltrates - possible gram-negative or possible gram-positive organism DM2 with hyperglycemia Severe malnutrition Plan: Received broad-spectrum IV antibiotics and IV fluids in the ED Will continue with Rocephin 1 g daily Follow urine cultures Will add azithromycin to treat likely community-acquired pneumonia Hemoglobin A1c pending Basal/prandial insulin FEN - ADA diet PPX - Lovenox FULL CODE Dispo - inpatient for above Justifications for Admission Other Justification EDGARD DALY MD Dec 04, 2020 07:40
[2020-12-04] MEDS: INSULIN LISPRO 300 UNITS/3 ML VIAL. SQ SCH ×3 (09:01→17:52)
[2020-12-04 14:15] VITALS: BP 126/72
[2020-12-04] MEDS ORDERED: cefTRIAXone IV Push 1 GM VIAL. IVP SCH (17:00)
[2020-12-04 19:00] VITALS: BP 117/69
[2020-12-04] MEDS ORDERED: INSULIN GLARGINE SYRINGE. SQ SCH ×2 (21:00)
[2020-12-04 23:14] VITALS: BP 121/74
[2020-12-05 01:08] LABS: HEMOGLOBIN A1C 10.9 % (4.8-5.6)
[2020-12-05 03:00] VITALS: BP 120/70
[2020-12-05 07:00] VITALS: BP 131/75
[2020-12-05] MEDS: INSULIN LISPRO 300 UNITS/3 ML VIAL. SQ SCH ×2 (08:31→12:38)
[2020-12-05] MEDS ORDERED: AZITHROMYCIN 250 MG TABLET. PO SCH (09:00)
--- NOTE | 2020-12-05 10:05 | NUR ---
SW following. Discussed with RN, pt from home, room air, ada diet. COVID and Flu negative. Pt wanting to discharge home today. RN advised no SW needs at this time. SW will continue to follow.
[2020-12-05 11:00] VITALS: BP 112/68
[2020-12-05] MEDS ORDERED: AZIT500T4 PO (11:19)
[2020-12-05] MEDS ORDERED: GLIP2.5T4 PO (11:19)
[2020-12-05] MEDS ORDERED: METF500T16 PO (11:19)
--- NOTE | 2020-12-05 11:23 | PDOC3 ---
Discharge Summary Visit Information Date of Admission: Dec 04, 2020 Date of Discharge: Dec 05, 2020 Final Diagnosis Sepsis pneumonia Bibasilar lungs infiltrates - possible gram-negative or possible gram-positive organism DM2 with hyperglycemia, NEW moderate malnutrition poa Problems Medical Problems: (1) Fever Status: Acute (2) Headache Status: Acute (3) Person under investigation for COVID-19 Status: Acute (4) Sepsis Status: Acute (5) Urinary tract infection Status: Acute Brief Hospital Course Allergies Allergies Coded Allergies Type Severity Reaction Last Updated Verified No Known Drug Allergies 12/03/20 No Vital Signs Vital Signs Date Time Temp Pulse Resp B/P (MAP) Pulse Ox O2 Delivery O2 Flow Rate FiO2 12/05/20 08:00 Room Air 12/05/20 07:00 97.8 75 20 131/75 (93) 94 97.8 Lab Results Laboratory Tests Test 12/03/20 15:54 12/03/20 16:05 12/03/20 16:11 12/04/20 04:45 Urine Collection Type Unknown Urine Color Yellow Urine Clarity Clear Urine pH 6.0 (<5.0-8.0) Urine Specific [place] >=1.030 (1.000-1.030) Urine Protein 30 mg/dL (NEG-TRACE) Urine Glucose (UA) >=1000 mg/dL (NEG) Urine Ketones (Stick) >=80 mg/dL (NEG) Urine Blood Negative (NEG) Urine Nitrite Negative (NEG) Urine Bilirubin Negative (NEG) Urine Urobilinogen Dipstick 1.0 mg/dL (0.2 mg/dL) Urine Leukocyte Esterase Small (NEG) Urine RBC Occ /HPF (0-2) Urine WBC 11-20 /HPF (0-4) Urine Squamous Epithelial Cells Few /LPF Urine Bacteria Many /HPF (0-FEW) Urine Mucus Marked /LPF White Blood Count 19.4 x10^3/uL (4.0-11.0) 14.2 x10^3/uL (4.0-11.0) Red Blood Count 5.34 x10^6/uL (4.30-5.70) 4.63 x10^6/uL (4.30-5.70) Hemoglobin 16.2 g/dL (13.0-17.5) 14.1 g/dL (13.0-17.5) Hematocrit 46.9 % (39.0-53.0) 41.1 % (39.0-53.0) Mean Corpuscular Volume 88 fL (79-100) 89 fL (79-100) Mean Corpuscular Hemoglobin 30 pg (25-35) 31 pg (25-35) Mean Corpuscular Hemoglobin Concent 34 g/dL (31-37) 34 g/dL (31-37) Red Cell Distribution Width 12.8 % (11.5-14.5) 12.8 % (11.5-14.5) Platelet Count 216 x10^3/uL (140-400) 201 x10^3/uL (140-400) Neutrophils (%) (Auto) 83 % (31-73) 74 % (31-73) Lymphocytes (%) (Auto) 7 % (24-48) 15 % (24-48) Monocytes (%) (Auto) 9 % (0-9) 10 % (0-9) Eosinophils (%) (Auto) 0 % (0-3) 1 % (0-3) Basophils (%) (Auto) 1 % (0-3) 0 % (0-3) Neutrophils # (Auto) 16.1 x10^3/uL (1.8-7.7) 10.5 x10^3/uL (1.8-7.7) Lymphocytes # (Auto) 1.4 x10^3/uL (1.0-4.8) 2.1 x10^3/uL (1.0-4.8) Monocytes # (Auto) 1.8 x10^3/uL (0.0-1.1) 1.4 x10^3/uL (0.0-1.1) Eosinophils # (Auto) 0.0 x10^3/uL (0.0-0.7) 0.1 x10^3/uL (0.0-0.7) Basophils # (Auto) 0.1 x10^3/uL (0.0-0.2) 0.1 x10^3/uL (0.0-0.2) Segmented Neutrophils % 73 % (35-66) Band Neutrophils % 12 % (0-9) Lymphocytes % 7 % (24-48) Monocytes % 7 % (0-10) Basophils % 1 % (0-3) Toxic Granulation Slight Platelet Estimate Adequate (ADEQUATE) Polychromasia Slight Sodium Level 133 mmol/L (136-145) 137 mmol/L (136-145) Potassium Level 3.7 mmol/L (3.5-5.1) 3.6 mmol/L (3.5-5.1) Chloride Level 98 mmol/L (98-107) 103 mmol/L (98-107) Carbon Dioxide Level 25 mmol/L (21-32) 25 mmol/L (21-32) Anion Gap 10 (6-14) 9 (6-14) Blood Urea Nitrogen 16 mg/dL (8-26) 18 mg/dL (8-26) Creatinine 1.1 mg/dL (0.7-1.3) 0.9 mg/dL (0.7-1.3) Estimated GFR (Cockcroft-Gault) 68.5 86.4 BUN/Creatinine Ratio 15 (6-20) 20 (6-20) Glucose Level 270 mg/dL (70-99) 211 mg/dL (70-99) Lactic Acid Level 1.1 mmol/L (0.4-2.0) Calcium Level 8.6 mg/dL (8.5-10.1) 7.6 mg/dL (8.5-10.1) Total Bilirubin 0.8 mg/dL (0.2-1.0) 0.7 mg/dL (0.2-1.0) Aspartate Amino Transf (AST/SGOT) 5 U/L (15-37) 9 U/L (15-37) Alanine Aminotransferase (ALT/SGPT) 23 U/L (16-63) 18 U/L (16-63) Alkaline Phosphatase 122 U/L (46-116) 98 U/L (46-116) Total Protein 7.4 g/dL (6.4-8.2) 6.0 g/dL (6.4-8.2) Albumin 3.2 g/dL (3.4-5.0) 2.5 g/dL (3.4-5.0) Albumin/Globulin Ratio 0.8 (1.0-1.7) 0.7 (1.0-1.7) Procalcitonin 0.37 ng/mL (0.00-0.10) Influenza Type A Antigen Negative (NEGATIVE) Influenza Type B Antigen Negative (NEGATIVE) SARS-CoV-2 RNA (NIKKO) Negative (Negative) SARS-CoV-2 Antigen (Rapid) Negative (NEGATIVE) Hemoglobin A1c 10.9 % (4.8-5.6) Test 12/04/20 08:58 12/04/20 12:40 12/04/20 17:25 12/04/20 21:28 Glucose (Fingerstick) 225 mg/dL (70-99) 232 mg/dL (70-99) 176 mg/dL (70-99) 210 mg/dL (70-99) Test 12/05/20 07:14 Glucose (Fingerstick) 177 mg/dL (70-99) Laboratory Tests Test 12/04/20 12:40 12/04/20 17:25 12/04/20 21:28 12/05/20 07:14 Glucose (Fingerstick) 232 mg/dL (70-99) 176 mg/dL (70-99) 210 mg/dL (70-99) 177 mg/dL (70-99) Brief Hospital Course Mr. Staton is a 60 old male with past medical history UTIs, kidney stones, admit bilateral flank pain for the past 3 days. Labs on admission showed WBC 19.4, CBG 270. Urinalysis with small leukocyte esterase, urine nitrite negative, urine WBC 1120, with many urine bacteria. Chest x-ray showed mild patchy airspace opacities bibasilar lungs likely infiltrates. rocephin and azithro given, pain gone in AM, felt at baseline Discharge Information Condition at Discharge: Improved Follow Up: Weeks Disposition/Orders: D/C to Home Scheduled Azithromycin (Azithromycin Tablet) 500 Mg Tablet, 1 TAB PO DAILY for pneumonia for 5 Days, #5 Ref 0 Prescribed by: AME MAZA on 12/05/201118 Glipizide (Glipizide Er) 2.5 Mg Tab.er.24, 1 TAB PO DAILY for diabetes, #30 Prescribed by: AME MAZA on 12/05/201118 Metformin Hcl (Metformin Hcl) 500 Mg Tablet, 500 MG PO BIDWMEALS for ANTI- DIABETIC, #60 Ref 0 Prescribed by: AME MAZA on 12/05/201118 Patient Instructions Patient Instructions > 30 min he lives in [facility], is here to wire the [facility] facility being [address]ilt on [address]. needs primary care new meds discussed should get glucometer and check daily at random times and record Justicifation of Admission Dx: Justifications for Admission: Justification of Admission Dx: Yes (sepsis, pna) AME MAZA MD Dec 05, 2020 11:23
[2020-12-05] MEDS ORDERED: IBUPROFEN 200 MG TABLET. PO ONE (13:00)
--- NOTE | 2020-12-05 13:03 | NUR ---
patient discharged home with self care. Patient is here from out of town for work. Patient stated he would follow up once back home. Patient had no questions at this time.
== END 2020-12-05 12:40 | disposition home or self-care (01) | DRG 871 ==
LOC: ER 14:43 → ED HOLD 20:15 → 4 NORTH 12-04 14:14
PROVIDERS: ADMIT Student in an Organized Health Care Education/Training Program; ATTEND Student in an Organized Health Care Education/Training Program
DX: A41.9 Sepsis, unspecified organism (principal); E43 Unspecified severe protein-calorie malnutrition; J15.6 Pneumonia due to other Gram-negative bacteria; J15.9 Unspecified bacterial pneumonia; N30.00 Acute cystitis without hematuria; Z20.822 Contact with and (suspected) exposure to COVID-19; Z87.440 Personal history of urinary (tract) infections; Z87.442 Personal history of urinary calculi; Z87.891 Personal history of nicotine dependence; Z68.29 Body mass index [BMI] 29.0-29.9, adult; E11.65 Type 2 diabetes mellitus with hyperglycemia; Z79.4 Long term (current) use of insulin
CPT/HCPCS: 36415; 71045; 74176; 80053; 81001; 82962; 83036; 83605; 84145; 85007; 85025; 87040; 87077; 87086; 87186; 87426; 87804; 96360; 96361; J0696; J1815; J2270; J2405; J7030; U0003; U0005; 99285-25; G0378